=== PATIENT | female | born 1945 | race Caucasian/White ===

== ENCOUNTER 2023-04-21 14:20 | Outpatient (CLI) | payer MEDICARE, OTHER | END 2023-04-21 14:21 | disposition home or self-care (01) | LOC: CSHMAMMO 14:20 | PROVIDERS: ATTEND Student in an Organized Health Care Education/Training Program | DX: M81.0 Age-related osteoporosis without current pathological fracture (principal); M85.852 Other specified disorders of bone density and structure, left thigh; M85.88 Other specified disorders of bone density and structure, other site | CPT/HCPCS: 77080 ==

== ENCOUNTER 2023-05-14 08:04 | Outpatient (CLI) | payer MEDICARE, OTHER | END 2023-05-14 08:05 | disposition home or self-care (01) | LOC: CSHRAD 08:04 | PROVIDERS: ATTEND Internal Medicine Rheumatology | DX: M17.0 Bilateral primary osteoarthritis of knee (principal); M47.814 Spondylosis without myelopathy or radiculopathy, thoracic region; M80.08XA Age-related osteoporosis with current pathological fracture, vertebra(e), initial encounter for fracture | CPT/HCPCS: 72070 ==